=== PATIENT | female | born 1995 | race Caucasian/White ===

== ENCOUNTER → 2020-09-26 09:35 | Outpatient (CLI) | payer OTHER, SELFPAY ==
[2020-09-28 08:17] LABS: RPR Screen Non Reactive (Non Reactive)
[2020-09-29 15:38] LABS: Hepatitis B Surface Antigen NEGATIVE s/c (NEGATIVE)
[2020-09-29 15:56] LABS: HIV 1 & 2 Ab/Ag 4th Gen Combo NEGATIVE (NEGATIVE); Hep C Virus Ab w/Reflex Quant NEGATIVE s/c (NEGATIVE)
== END ==
PROVIDERS: Family Provider Family Medicine; PCP Family Medicine; Visit Provider Physician Assistant
DX: Z72.51 High risk heterosexual behavior (principal)
CPT/HCPCS: 86592; 86803; 87340; 87389

== ENCOUNTER → 2020-10-09 14:20 | Outpatient (CLI) | payer OTHER, MEDICAID, SELFPAY ==
--- NOTE | 2020-10-09 14:21 | DI.US.S_ITS ---
PROCEDURE: US ABDOMEN LIMITED INDICATIONS: MID BACK LUMP ? LIPOMA/IDENTIFY MASS TECHNIQUE: Real-time focused scanning was performed of the abdomen, with image documentation. COMPARISON: None. FINDINGS: The patient was able to identify the area of current clinical concern and direct the sonographic assessment to that region. There is a identifiable 0.9 x 1.5 x 4.4 cm structure in the subcutaneous fat, isoechoic to adjacent fat, consistent with lipoma. IMPRESSION: Presumed lipoma produces the longstanding palpable area of clinical concern mid to upper back area. Continued clinical follow-up with attention to this area is recommended and if unusual symptoms developed or enlargement develops follow-up by contrast-enhanced MR scanning targeted to the area would be recommended Dictated by: Awais Maldonado M.D. on 10/09/2020 at 16:43 Approved by: Awais Maldonado M.D. on 10/09/2020 at 16:44
== END ==
PROVIDERS: Family Provider Family Medicine; PCP Family Medicine; Referring Provider Physician Assistant; Visit Provider Physician Assistant
DX: R22.2 Localized swelling, mass and lump, trunk (principal)
CPT/HCPCS: 76705

== ENCOUNTER → 2021-05-26 12:45 | Outpatient (CLI) | payer OTHER, MEDICAID, SELFPAY | PROVIDERS: Family Provider Family Medicine; PCP Family Medicine; Visit Provider Physician Assistant | DX: W57.XXXA Bitten or stung by nonvenomous insect and other nonvenomous arthropods, initial encounter (principal) | CPT/HCPCS: 81002; 81025; 87070; 87075; 87077; 87147; 87186; 87205 ==

== ENCOUNTER 2021-10-17 18:22 | Emergency (ER) | payer OTHER, MEDICAID, SELFPAY ==
[2021-10-17 19:02] VITALS: BP 130/72; PULSE 116; RESP 18; TEMP 37; O2SAT 100
[2021-10-17 20:10] LABS: Bacteria Urine Moderate (10-30); Culture Indicated Urine Specimen Cultured; RBC Urine 0-1/HPF (0-5/HPF); WBC Urine 30-100/HPF (0-5/HPF)
--- NOTE | 2021-10-17 21:44 | ED_ITS ---
HPI - General Adult General Chief complaint: Urogenital-Female Stated complaint: kidney pain Time Seen by Provider: 10/17/21 21:33 Source: patient Mode of arrival: Ambulatory Limitations: no limitations History of Present Illness HPI narrative: 26-year-old female here for evaluation of right-sided kidney pain. She thinks she has a urinary tract infection. She has had urinary tract infections in the past. She is having vaginal bleeding but has also recently started her menstrual cycle. No prior history of sexually transmitted infections. She she states there is a possibility that she has a sexually transmitted infection currently. No vomiting. No fevers. Related Data Previous Rx's Medication Instructions Recorded acyclovir 200 mg capsule 200 mg PO QID #40 caps 11/27/20 mupirocin 2 % topical ointment 1 applic topical TID #15 grams 05/26/21 sulfamethoxazole 800 1 tab PO BID 3 days #6 tabs 10/17/21 mg-trimethoprim 160 mg tablet (Bactrim DS) Allergies Allergy/AdvReac Type Severity Reaction Status Date / Time No Known Drug Allergies Allergy Verified 10/17/21 19:10 Review of Systems Review of Systems ROS Unobtainable: All systems reviewed & are unremarkable except as noted in HPI and below Patient History Medical History Encounter for screening for infections with a predominantly sexual mode of transmission 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 Social History Smoking Status: Current some day smoker Smoking Status: Current some day smoker alcohol intake frequency: a few times a month Substance Use Type: marijuana Exam Initial Vital Signs Initial Vital Signs: Vital Signs Temperature 98.6 F 10/17/21 19:02 Pulse Rate 116 H 10/17/21 19:02 Respiratory Rate 18 10/17/21 19:02 Blood Pressure 130/72 10/17/21 19:02 Pulse Oximetry 100 10/17/21 19:02 Oxygen Delivery Method 10/17/21 19:02 HENMT Head: normal to inspection and normocephalic GI Inspection: normal to inspection Back/Spine/Pelvis Back: No CVA tenderness Skin General: no rashes or lesions noted Neuro General: patient alert and patient awake Extrem General: normal to inspection and capillary refill normal Course Orders Ordered: Discontinued Medications Trimethoprim/Sulfamethoxazole (Trimeth/Sulfa 160/800 (Ds) Tablet) 1 tab PO NOW ONE Stop: 10/17/21 22:02 Last Admin: 10/17/21 22:04 Dose: 1 tab Documented By: NR Vital Signs Vital signs: Vital Signs - 8 hr 10/17/21 22:07 Pulse Rate 105 H Respiratory Rate 24 Blood Pressure 129/74 Pulse Oximetry 97 Oxygen Delivery Method Room Air Medical Decision Making Lab Data Labs: Lab Results 10/17/21 10/17/21 Range/Units 19:06 19:06 Urine RBC 0-1/hpf (0-5/HPF) Urine WBC 30-100/hpf H (0-5/HPF) Urine Bacteria Moderate (10-30) H (None) Ur Culture Indicated? Specimen cultured Ur Chlamydia DNA (PCR) Not detected N gonorrhoeae DNA (PCR) Not detected Point of Care Testing Test Results Negative Urine Dip Bedside Urine Glucose Negative Bedside Urine Bilirubin - Negative Bedside Urine Ketone - Negative Urine Specific [place] 1.020 Bedside Urine Occult Blood - Negative Bedside Urine pH 6.0 Bedside Urine Protein + 30 Bedside Urine Urobilinogen - Negative Bedside Urine Nitrite - Negative Bedside Urine Leukocytes + 70 Esterase Point of care testing: Point of Care Testing Test Results Negative Urine Dip Bedside Urine Glucose Negative Bedside Urine Bilirubin - Negative Bedside Urine Ketone - Negative Urine Specific [place] 1.020 Bedside Urine Occult Blood - Negative Bedside Urine pH 6.0 Bedside Urine Protein + 30 Bedside Urine Urobilinogen - Negative Bedside Urine Nitrite - Negative Bedside Urine Leukocytes + 70 Esterase MDM Narrative Medical decision making narrative: Patient does have white blood cells and bacteria in her urine. No fevers. No CVA tenderness. Discomfort is more in the right lower back. Afebrile. Tolerating oral intake. Initially had a discussion about checking for gonorrhea and chlamydia and the patient initially agreed to this however stated that she would rather not wait and be discharged home. Will treat with Bactrim. Was given a dose here in the emergency department and will sent home with a prescription. She was given return precautions. She expressed understanding and agreement. Discharge Plan Departure Patient Disposition: Home Clinical Impression: Urinary tract infection Instructions: DI for Urinary Tract Infection (UTI) Activity Restrictions/Additional Instructions: Be sure to take the antibiotics as directed. They were transmitted to the pharmacy of your choice. Contact your primary provider for follow-up. Return to the emergency department for any new or worsening symptoms. Prescriptions: New sulfamethoxazole-trimethoprim [Bactrim DS] 800-160 mg tablet 1 tab PO BID 3 Days Qty: 6 0RF No Action acyclovir 200 mg capsule 200 mg PO QID Qty: 40 1RF mupirocin 2 % ointment 1 applic topical TID Qty: 15 0RF Rx Instructions: Use for ten days Referrals: Margie Isaac MD [Primary Care Provider] - Visit Report Forms: Patient Portal/API
[2021-10-17] MEDS: TRIMETH/SULFA 160/800 (DS) TABLET 1 TAB PO (22:04)
[2021-10-17 22:07] VITALS: BP 129/74; PULSE 105; RESP 24; O2SAT 97
--- NOTE | 2021-10-17 22:08 | PC.NURSE ---
pt assessed by . pt states she is feeling antsy to get out of here, she has been here too long.
[2021-10-17 23:27] LABS: Urine N gonorrhoeae NOT DETECTED
[2021-10-17 23:40] LABS: Urine Chlamydia NOT DETECTED
== END 2021-10-17 22:17 | disposition home or self-care (01) ==
PROVIDERS: Emergency Provider Emergency Medicine; Family Provider Family Medicine; PCP Family Medicine
DX: N39.0 Urinary tract infection, site not specified (principal)
CPT/HCPCS: 81003; 81015; 81025; 87077; 87086; 87186; 87491; 87591; 99283

== ENCOUNTER 2022-07-26 16:36 | Emergency (ER) | payer OTHER, MEDICAID, SELFPAY ==
[2022-07-26 16:43] VITALS: BP 108/70; PULSE 108; RESP 18; TEMP 37; O2SAT 100; BMI 22.3
[2022-07-26 18:50] VITALS: BP 115/64; PULSE 99; RESP 12; O2SAT 100
--- NOTE | 2022-07-26 19:02 | ED.GENADULT ---
HPI - General Adult General Chief complaint: Abdominal Pain Stated complaint: kideny infection T-1 Time Seen by Provider: 07/26/22 18:03 Source: patient Mode of arrival: Ambulatory History of Present Illness HPI narrative: Patient is a 26-year-old female. Here for evaluation of almost 24 hours of urinary urgency and frequency and burning. She is also having some vaginal discharge. Is also having some generalized body aches. Nausea but no vomiting. She has had a urinary tract infection in the past but was approximately 1 year ago. She does not know what medication she was put on. She is having some right-sided lower back discomfort. Related Data Previous Rx's Medication Instructions Recorded mupirocin 2 % topical ointment 1 applic topical TID #15 grams 05/26/21 acyclovir 200 mg capsule See Rx Instructions .Route 01/18/22 .COMPLEX #40 caps cephalexin 500 mg capsule 500 mg PO BID 7 days #14 caps 07/26/22 Allergies Allergy/AdvReac Type Severity Reaction Status Date / Time No Known Drug Allergies Allergy Verified 10/17/21 19:10 Review of Systems Constitutional Constitutional: Reports system reviewed and no additional complaints, except as documented Gastrointestinal Gastrointestinal: Reports system reviewed and no additional complaints, except as documented Genitourinary Genitourinary: Reports system reviewed and no additional complaints, except as documented Musculoskeletal Musculoskeletal: Reports system reviewed and no additional complaints, except as documented Integumentary/Breasts Skin/Breast: Reports system reviewed and no additional complaints, except as documented Neurologic Neurologic: Reports system reviewed and no additional complaints, except as documented Patient History Medical History Encounter for screening for infections with a predominantly sexual mode of transmission 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 Social History Smoking Status: Current some day smoker Smoking Status: Current some day smoker alcohol intake frequency: a few times a month Substance Use Type: marijuana Exam Initial Vital Signs Initial Vital Signs: Vital Signs Temperature 98.6 F 07/26/22 16:43 Pulse Rate 108 H 07/26/22 16:43 Respiratory Rate 18 07/26/22 16:43 Blood Pressure 108/70 07/26/22 16:43 Pulse Oximetry 100 07/26/22 16:43 Oxygen Delivery Method Room Air 07/26/22 16:43 [facility] Head: normal to inspection and normocephalic Resp Effort & Inspection: normal respiratory effort Cardio Rate: regular rate Back/Spine/Pelvis Back: No CVA tenderness Neuro General: patient alert, patient awake and moves all extremities Course Orders Ordered: ED Orders 07/26/22 18:06 Urine Microscopic Stat 07/26/22 19:03 Urine Culture Stat Discontinued Medications Cephalexin HCl (Cephalexin 250 Mg Capsule) 500 mg PO NOW ONE Stop: 07/26/22 19:04 Last Admin: 07/26/22 19:13 Dose: 500 mg Documented By: ALANNAH Ibuprofen (Ibuprofen 400 Mg Tablet) 800 mg PO NOW ONE Stop: 07/26/22 19:04 Last Admin: 07/26/22 19:13 Dose: 800 mg Documented By: ALANNAH Vital Signs Vital signs: Vital Signs - 8 hr 07/26/22 16:43 07/26/22 18:50 Temperature 98.6 F Pulse Rate 108 H 99 H Respiratory Rate 18 12 Blood Pressure 108/70 115/64 Pulse Oximetry 100 100 Oxygen Delivery Method Room Air Room Air Medical Decision Making Lab Data Lab results reviewed: Yes I reviewed the patient's lab results. Labs: Lab Results 07/26/22 Range/Units 18:06 Urine RBC None seen (0-5/HPF) Urine WBC >100/hpf H (0-5/HPF) Ur Squamous Epith Cells 10-30 /hpf H (0-5/HPF) Urine Bacteria Many (>30) H (None) Ur Culture Indicated? Specimen cultured Point of Care Testing Test Results Negative Urine Dip Bedside Urine Glucose Negative Bedside Urine Bilirubin - Negative Bedside Urine Ketone - Negative Urine Specific [place] 1.015 Bedside Urine Occult Blood + Bedside Urine pH 6.0 Bedside Urine Protein + 30 Bedside Urine Urobilinogen - Negative Bedside Urine Nitrite + Positive Bedside Urine Leukocytes +++ 500 Esterase Point of care testing: Point of Care Testing Test Results Negative Urine Dip Bedside Urine Glucose Negative Bedside Urine Bilirubin - Negative Bedside Urine Ketone - Negative Urine Specific [place] 1.015 Bedside Urine Occult Blood + Bedside Urine pH 6.0 Bedside Urine Protein + 30 Bedside Urine Urobilinogen - Negative Bedside Urine Nitrite + Positive Bedside Urine Leukocytes +++ 500 Esterase MDM Narrative Medical decision making narrative: Patient does have a nitrite positive urine and given the symptoms that she presents with it is consistent with a urinary tract infection. A urine culture was obtained. She was given a dose of antibiotics here in the emergency department on prescription was sent to the pharmacy of her choice. She tolerated this without problems. Given her exam I do have low suspicion for pyelonephritis. She was given strict return precautions and follow-up instructions. She expressed understanding and agreement. Discharge Plan Departure Patient Disposition: Home Clinical Impression: UTI (urinary tract infection) Instructions: DI for Urinary Tract Infection (UTI) Activity Restrictions/Additional Instructions: A prescription for antibiotics was sent to [facility] per your request. There was also a urine culture pending at the time of your discharge and we will contact you if we need to change any antibiotics based on this. I also recommend that you continue to take Tylenol and ibuprofen for any fevers or body aches. Return to the emergency department for new or worsening symptoms Prescriptions: New cephalexin 500 mg capsule 500 mg PO BID 7 Days Qty: 14 0RF No Action acyclovir 200 mg capsule See Rx Instructions .ROUTE .COMPLEX Qty: 40 1RF Dose Instruction: TAKE ONE CAPSULE BY MOUTH FOUR TIMES A DAY Rx Instructions: TAKE ONE CAPSULE BY MOUTH FOUR TIMES A DAY mupirocin 2 % ointment 1 applic topical TID Qty: 15 0RF Rx Instructions: Use for ten days Referrals: Margie Isaac MD [Primary Care Provider] - Stand Alone Forms: Patient Portal/API
[2022-07-26 19:04] LABS: Bacteria Urine Many (>30); Culture Indicated Urine Specimen Cultured; RBC Urine None Seen (0-5/HPF); Squamous Epithelial Cell Urine 10-30 /HPF (0-5/HPF); WBC Urine >100/HPF (0-5/HPF)
[2022-07-26] MEDS: cephALEXin 250 MG CAPSULE 500 MG PO (19:13)
[2022-07-26] MEDS: IBUPROFEN 400 MG TABLET 800 MG PO (19:13)
== END 2022-07-26 19:17 | disposition home or self-care (01) ==
PROVIDERS: Emergency Provider Emergency Medicine; Family Provider Family Medicine; PCP Family Medicine
DX: N39.0 Urinary tract infection, site not specified (principal)
CPT/HCPCS: 81003; 81015; 81025; 87086; 87186; 99283

== ENCOUNTER 2023-03-21 19:47 | Emergency (ER) | payer OTHER, MEDICAID, SELFPAY ==
[2023-03-21 19:55] VITALS: BP 125/78; PULSE 91; RESP 16; TEMP 36.8; O2SAT 98; BMI 22.8
== END 2023-03-21 20:54 | disposition left against medical advice (07) ==
PROVIDERS: Emergency Provider Emergency Medicine; Family Provider Family Medicine; PCP Family Medicine
CPT/HCPCS: 99281

== ENCOUNTER 2023-03-22 01:20 | Emergency (ER) | payer OTHER, MEDICAID, SELFPAY ==
[2023-03-22 01:49] VITALS: BP 120/74; PULSE 78; RESP 18; TEMP 36.8; O2SAT 100; BMI 22.8
--- NOTE | 2023-03-22 01:55 | ED.ANIMALBIT ---
HPI - Animal Bite General Chief Complaint: Animal Bite Stated Complaint: spider bite inner rt thigh Time Seen by Provider: 03/22/23 01:22 History of Present Illness HPI narrative: 27-year-old female presents for evaluation of a spider bite on her right inner thigh for the last week. She states it is getting worse and she is concerned that it needs to be drained. Patient checked in the emergency department earlier today but left prior to being seen by a doctor or SARAH Related Data Previous Rx's Medication Instructions Recorded mupirocin 2 % topical ointment 1 applic topical TID #15 grams 05/26/21 acyclovir 200 mg capsule See Rx Instructions .Route 01/18/22 .COMPLEX #40 caps cephalexin 500 mg capsule 500 mg PO TID #30 caps 02/18/23 doxycycline hyclate 100 mg capsule 100 mg PO BID #14 caps 03/22/23 Allergies Allergy/AdvReac Type Severity Reaction Status Date / Time No Known Drug Allergies Allergy Verified 03/21/23 20:13 Review of Systems Review of Systems Narrative: Negative except as noted above Patient History Medical History 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 Encounter for screening for infections with a predominantly sexual mode of transmission Social History Smoking Status: Current some day smoker Smoking Status: Current some day smoker alcohol intake frequency: a few times a month Substance Use Type: marijuana Exam Initial Vital Signs Initial Vital Signs: Vital Signs Temperature 98.2 F 03/22/23 01:49 Pulse Rate 78 03/22/23 01:49 Respiratory Rate 18 03/22/23 01:49 Blood Pressure 120/74 03/22/23 01:49 Pulse Oximetry 100 03/22/23 01:49 Oxygen Delivery Method Room Air 03/22/23 01:49 Const: Awake, alert, no acute distress, nontoxic appearing MSK: Atraumatic, full range of motion, pulses equal Skin: palm-sized area of erythema over inner R thigh. No central fluctuance Neuro: AO x3, CN II-XII grossly intact, moves all extremities Psych: affect normal, mood normal, not suicidal, not homicidal Course Vital Signs Vital signs: Vital Signs - 8 hr 03/22/23 01:49 Temperature 98.2 F Pulse Rate 78 Respiratory Rate 18 Blood Pressure 120/74 Pulse Oximetry 100 Oxygen Delivery Method Room Air MDM - Animal Bite MDM Narrative Medical decision making narrative: Lesion over inner right thigh. Patient is concerned there may be an abscess underneath because it is getting worse. I do not feel any central fluctuance. Point of care ultrasound placed over the patient's area of concern and there was no fluid collection amenable to drainage. Patient counseled to use warm compresses on the area. Due to the size of the cellulitis and duration we will send antibiotics to the pharmacy. ED return precautions discussed at bedside. Patient expressed understanding of the plan and is in agreement at this time. All questions answered at the time of discharge. Discharge Plan Departure Patient Disposition: Home Clinical Impression: Cellulitis Instructions: DI for Spider Bites Activity Restrictions/Additional Instructions: Apply warm compresses to the area of cellulitis several times per day. Take all antibiotics as prescribed. There is no drainable fluid collection that I see on ultrasound at this time. Prescriptions: New doxycycline hyclate 100 mg capsule 100 mg PO BID Qty: 14 0RF No Action acyclovir 200 mg capsule See Rx Instructions .ROUTE .COMPLEX Qty: 40 1RF Dose Instruction: TAKE ONE CAPSULE BY MOUTH FOUR TIMES A DAY Rx Instructions: TAKE ONE CAPSULE BY MOUTH FOUR TIMES A DAY cephalexin 500 mg capsule 500 mg PO TID Qty: 30 0RF Rx Instructions: Sending again per K Plascencia since patient reports she lost first RX mupirocin 2 % ointment 1 applic topical TID Qty: 15 0RF Rx Instructions: Use for ten days Referrals: Margie Isaac MD [Primary Care Provider] - Stand Alone Forms: Patient Portal/API
== END 2023-03-22 02:07 | disposition home or self-care (01) ==
PROVIDERS: Emergency Provider Emergency Medicine; Family Provider Family Medicine; PCP Family Medicine
DX: L03.115 Cellulitis of right lower limb (principal)
CPT/HCPCS: 99281

== ENCOUNTER 2023-07-06 22:04 | Emergency (ER) | payer OTHER, MEDICAID, SELFPAY ==
[2023-07-06 22:09] VITALS: BP 128/85; PULSE 84; RESP 16; TEMP 36.8; O2SAT 100; BMI 21.2
--- NOTE | 2023-07-07 00:24 | ED_ITS ---
HPI - Skin/Abscess/Foreign Bdy General Chief complaint: Skin/Abscess/Foreign Body Stated complaint: rt index finger injury Time Seen by Provider: 07/06/23 23:31 Source: patient Mode of arrival: Ambulatory Limitations: no limitations History of Present Illness HPI narrative: 27-year-old female presents for evaluation of right index finger swelling. Last week patient reports that a piece of metal punctured the base of her index finger. Yesterday she received a penicillin and tetanus shot yesterday as well as an XR at her primary care doctor on [facility]. XR showed no foreign body. She was also discharged on doxycycline prescription, which she has taken for 1 day. She is concerned because she doesn't feel she is getting better. 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 Encounter for screening for infections with a predominantly sexual mode of transmission Social History Smoking Status: Current some day smoker Smoking Status: Current some day smoker tobacco type: cigarettes alcohol intake frequency: holidays/special occasions only Substance Use Type: marijuana Exam Initial Vital Signs Initial Vital Signs: Vital Signs Temperature 98.3 F 07/06/23 22:09 Pulse Rate 84 07/06/23 22:09 Respiratory Rate 16 07/06/23 22:09 Blood Pressure 128/85 07/06/23 22:09 Pulse Oximetry 100 07/06/23 22:09 Oxygen Delivery Method Room Air 07/06/23 22:09 Const: Awake, alert, no acute distress, nontoxic appearing MSK: Atraumatic, full range of motion, able to fully flex and extend finger Skin: warts on palmar index finger. Small puncture wound base of R index finger. Minimal erythema and swelling compared to other fingers. No excessive warmth, no fluctuance Neuro: AO x3, CN II-XII grossly intact, moves all extremities Course Vital Signs Vital signs: Vital Signs - 8 hr 07/06/23 22:09 Temperature 98.3 F Pulse Rate 84 Respiratory Rate 16 Blood Pressure 128/85 Pulse Oximetry 100 Oxygen Delivery Method Room Air MDM - Skin/Abscess/Foreign Bdy MDM Narrative Medical decision making narrative: Presenting for recheck of wounds. There is minimal swelling of the base of the right index finger compared to other fingers, however no excessive warmth or fluctuance. There is no symmetric swelling, patient was full flexion-extension of her finger. Point of care ultrasound shows no organized fluid collection to suspect underlying abscess. Patient was already on antibiotics and has only been on these drugs for only 1 day. Patient advised it may take up to several days for antibiotics to take effect. She was advised to continue to take the doxycycline prescribed and to follow up as needed with her primary care doctor. Note for work provided. Discharge Plan Departure Patient Disposition: Home Clinical Impression: Finger pain Instructions: DI for Cellulitis -- Adult Activity Restrictions/Additional Instructions: Continue your antibiotics as prescribed. Follow up with your primary care physician. Prescriptions: No Action acyclovir 200 mg capsule See Rx Instructions .ROUTE .COMPLEX Qty: 40 1RF Dose Instruction: TAKE ONE CAPSULE BY MOUTH FOUR TIMES A DAY Rx Instructions: TAKE ONE CAPSULE BY MOUTH FOUR TIMES A DAY doxycycline hyclate 100 mg capsule 100 mg PO BID 10 Days Qty: 20 0RF Rx Instructions: Take with food and water. Avoid dairy and sun exposure. mupirocin 2 % ointment 1 applic topical TID Qty: 22 0RF Rx Instructions: Use for ten days Referrals: Margie Isaac MD [Primary Care Provider] - Stand Alone Forms: Patient Portal/API, Work Release Note
== END 2023-07-07 00:33 | disposition home or self-care (01) ==
PROVIDERS: Emergency Provider Emergency Medicine; Family Provider Family Medicine; PCP Family Medicine
DX: M79.644 Pain in right finger(s) (principal)
CPT/HCPCS: 99281; 99282

== ENCOUNTER → 2023-07-15 14:50 | Outpatient (CLI) | payer OTHER, MEDICAID, SELFPAY ==
--- NOTE | 2023-07-15 14:51 | DI.MRI.S_ITS ---
PROCEDURE: MR THORACIC SPINE WO/W CON INDICATIONS: Further evaluate soft tissue mass TECHNIQUE: Noncontrast sagittal T1 spin echo and T2 fast spin echo, sagittal STIR, axial T1 and T2 fast spin echo through the thoracic spine. After the administration of contrast, axial and sagittal T1 spin echo with fat saturation through the thoracic spine. COMPARISON: None. FINDINGS: Image quality: Excellent Mild straightening of the thoracic spine. Vertebral body height of thoracic spine is well maintained. Marrow signal of the thoracic spine is normal for age. No marrow edema. No marrow replacing lesion. Intervertebral disc height are well maintained. No significant disorder of the thoracic spine. Disc bulge at C6-7, resulting in mild central canal stenosis. Cord signal of the thoracic spine: Unremarkable Central canal stenosis: None. Right neural foraminal stenosis: None. Left neural foraminal stenosis: None. Soft tissue mass: Corresponding to the pain marker, there is a subcutaneous fatty lesion measuring 3.4 x 1.4 by 5.4 cm (axial by craniocaudal dimension), at the level of T8, to T9-T10. likely representing a lipoma. No nodular internal enhancement. Other soft tissue findings: Visualized thoracic aorta is normal. IMPRESSION: 1. 5.4 cm subcutaneous lipoma at the level of T8 to T9-10 can correlating to the pain marker. 2. No significant degenerative changes of the thoracic spine. Dictated by: Rocio Ng M.D. on 07/15/2023 at 17:49 Approved by: Rocio Ng M.D. on 07/15/2023 at 18:01
== END ==
PROVIDERS: Family Provider Family Medicine; PCP Physician Assistant; Referring Provider Physician Assistant; Visit Provider Physician Assistant
DX: D17.1 Benign lipomatous neoplasm of skin and subcutaneous tissue of trunk (principal)
CPT/HCPCS: 72157; A9579

== ENCOUNTER → 2023-10-25 15:57 | Outpatient (CLI) | payer OTHER, MEDICAID, SELFPAY ==
[2023-10-26 22:40] LABS: Urine Chlamydia NOT DETECTED; Urine N gonorrhoeae NOT DETECTED
== END ==
PROVIDERS: Family Provider Family Medicine; PCP Physician Assistant; Visit Provider Physician Assistant Medical
DX: R30.0 Dysuria (principal); N88.8 Other specified noninflammatory disorders of cervix uteri; R10.2 Pelvic and perineal pain
CPT/HCPCS: 81002; 81025; 87086; 87491; 87591; 87798; 87801

== ENCOUNTER → 2023-10-28 14:05 | Day surgery (SDC) | payer OTHER, MEDICAID, SELFPAY ==
[2023-10-26 14:56] VITALS: BMI 22.6
[2023-10-28 14:54] VITALS: BMI 22.6
[2023-10-28 15:00] VITALS: BP 121/81; PULSE 77; RESP 18; TEMP 37; O2SAT 98
--- NOTE | 2023-10-28 15:31 | SUR.PREOP ---
Patient stated that she had 3 bites of ice cream at 1230 and smoked marijuana right before coming in to register for her procedure. SHe does not have a dedicated driver to take her home and wants to stay here for a while until she can drive. All of these items discussed with anesthesia and Dr. Poole and it was decided to cancel the procedure. RN informed the patient and let her know when she calls to reschedule that she cannot eat anything after midnight, not to use marijuana within 24 hours and she has to have a reliable person over 18 to pick her up. Patient verbalized understanding.
== END ==
PROVIDERS: Family Provider Family Medicine; PCP Physician Assistant; Referring Provider Surgery; Visit Provider Surgery
DX: D49.2 Neoplasm of unspecified behavior of bone, soft tissue, and skin (principal); Z53.09 Procedure and treatment not carried out because of other contraindication

== ENCOUNTER 2023-11-28 17:03 | Emergency (ER) | payer OTHER, MEDICAID, SELFPAY ==
[2023-11-28 17:05] VITALS: BP 118/73; PULSE 88; RESP 18; TEMP 36.2; O2SAT 100; BMI 21.2
--- NOTE | 2023-11-28 17:48 | DI.US.S_ITS ---
PROCEDURE: US OB <= 14 WEEKS FETUS INDICATIONS: DATES OUTSIDE/PRIOR DATING DATA: Last menstrual period (LMP): Unknown. LMP-based estimated date of delivery (MENG): Unknown. First dating scan (date and location): 11/28/2023. Estimated date of delivery (MENG) from first dating scan: 07/16/2024. TECHNIQUE: Real-time scanning was performed of the fetus and maternal pelvic organs, with image documentation. Endovaginal scanning was also performed to better visualize the fetus and maternal ovaries. COMPARISON: None. FINDINGS: Embryo: pole is identified with crown-rump length measuring 9 mm, consistent with 7 weeks and 0 days. Subchorionic hemorrhage measuring 1.5 x 0.6 x 1.3 cm. Heart rate: 128 beats per minute Maternal organs: Ovaries within normal limits. Right ovarian corpus luteal cyst. IMPRESSION: 1. Single live intrauterine consistent with 7 weeks and 0 days. 2. Subchorionic hemorrhage measuring up to 1.5 cm. We strive to produce accurate, complete, and clear reports of imaging services. To assist us in improving patient care, this report was composed using standard report templates and voice recognition software. Therefore, it may contain abnormal punctuation, insertions and/or omissions. Occasional wrong-word or sound-alike substitutions may occur. Though we review the report and make efforts to correct it, we do recommend that the report be read carefully in proper context to recognize any text inaccuracies. Dictated by: Richard Truong M.D. on 11/28/2023 at 18:47 Approved by: Richard Truong M.D. on 11/28/2023 at 18:48
[2023-11-28 18:02] LABS: Bacteria Urine Many (>30); Culture Indicated Urine Specimen Cultured; RBC Urine None Seen (0-5/HPF); Squamous Epithelial Cell Urine 0-1 /HPF (0-5/HPF); Urine Volume 10mL (spun); WBC Urine 0-1/HPF (0-5/HPF)
[2023-11-28 18:18] LABS: Add Manual Diff / Slide Review NO; Basophils Absolute Auto 100 /uL (0-100); Basophils Percent Auto 0.8 % (0-2); Eosinophils Absolute Auto 300 /uL (0-450); Eosinophils Percent Auto 2.7 % (2-4); Hematocrit 36.2 % (36-46); Hemoglobin 12.7 g/dL (12.0-16.0); Lymphocytes Absolute Auto 3200 /uL (1100-4500); Lymphocytes Percent Auto 27.1 % (25-40); Mean Corpuscular HGB Conc 35.2 % (30-36); Mean Corpuscular Hemoglobin 31.1 PG (26-34); Mean Corpuscular Volume 88.2 fL (80-100); Monocytes Absolute Auto 1200 /uL (0-900); Monocytes Percent Auto 10.6 % (3-14); Neutrophils Absolute Auto 6800 /uL (1500-7000); Neutrophils Percent Auto 58.8 % (50-75); Platelet Count 295 X10^3/uL (150-400); Red Cell Distribution Width 12.9 % (11.6-14.8); White Blood Cell Count 11.7 X10^3/uL (4.5-11.0)
[2023-11-28 18:26] LABS: Prothrombin Time 11.3 SECONDS (9.4-12.5)
[2023-11-28 18:29] LABS: PTT Partial Thromboplastin Tim 33 SECONDS (25.1-36.5)
--- NOTE | 2023-11-28 18:31 | ED_ITS ---
HPI - Recheck/Abnormal Lab/Rx <Sancho Gaimno PA-C - Last Filed: 11/29/23 14:51> General Chief Complaint: Recheck/Abnormal Lab/Rx Stated Complaint: needs ultrasound Time Seen by Provider: 11/28/23 17:45 Source: patient Mode of arrival: Ambulatory History of Present Illness HPI narrative: 28-year-old female presents to the ED requesting a ultrasound to date her . Patient took a test at home 2 days ago which was positive. Patient is unsure when her last menstrual period was, states that it was a while ago. Patient endorses symptoms of a including sore breasts, veins on breasts, nausea, tiredness. Denies vaginal bleeding or spotting. Denies pelvic cramping. Denies fever, chills. Related Data Previous Rx's Medication Instructions Recorded doxycycline monohydrate 100 mg 100 mg PO BID #14 caps 10/25/23 capsule amoxicillin 875 mg tablet 875 mg PO BID #20 tabs 10/30/23 Allergies Allergy/AdvReac Type Severity Reaction Status Date / Time No Known Drug Allergies Allergy Verified 10/28/23 14:51 Review of Systems <Sancho Gamino PA-C - Last Filed: 11/29/23 14:51> Constitutional Constitutional: Denies chills, Reports fatigue, Denies fever(s), Denies frequent falls, Denies lethargy and Denies weakness Eyes Eyes: Denies change in vision, Denies eye discharge, Denies irritation and Denies loss of vision ENT Ears, Nose, Mouth, and Throat: Denies change in voice, Denies dizziness, Denies neck pain, Denies sore throat and Denies throat swelling Cardiovascular Cardiovascular: Denies chest pain, Denies irregular heart rhythm, Denies lightheadedness, Denies palpitations, Denies dyspnea, Denies dyspnea on exertion and Denies orthopnea Respiratory Respiratory: Denies cough, Denies dyspnea, Denies dyspnea on exertion and Denies wheezing Gastrointestinal Gastrointestinal: Denies abdominal pain, Denies change in bowel habits, Denies diarrhea, Reports nausea and Denies vomiting Genitourinary Genitourinary: Reports amenorrhea Musculoskeletal Musculoskeletal: Denies neck pain and Denies numbness Integumentary/Breasts Skin/Breast: Reports breast swelling, Reports breast pain, Denies pruritus, Denies erythema, Denies rash and Denies wounds Neurologic Neurologic: Denies behavioral changes, Denies confusion, Denies dizziness, Denies frequent falls, Denies loss of vision, Denies numbness and Denies weakness Psychiatric Psychiatric: Denies anxiety, Denies behavioral changes, Denies confusion, Denies depression, Denies homicidal ideation and Denies suicidal ideation Endocrine Endocrine: Reports fatigue, Denies flushing and Denies palpitations Hematologic/Lymphatic Hematologic/Lymphatic: Denies easy bruising Allergic/Immunologic Allergic/Immunologic: Denies urticaria, Denies throat swelling and Denies wheezing Patient History <Sancho Gamino PA-C - Last Filed: 11/29/23 14:51> Medical History 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 lives with her father. household members: family lives independently: Yes occupational status: employed Smoking Status: Current some day smoker alcohol intake: current substance use type: marijuana Smoking Status: Current some day smoker tobacco type: cigarettes alcohol intake frequency: a few times a week Substance Use Type: marijuana Exam <Sancho Gamino PA-C - Last Filed: 11/29/23 14:51> Narrative Exam Narrative: Const General:?cooperative, healthy appearing and comfortable [facility] Head:?normal to inspection Ears:?hearing grossly normal bilaterally Nose:?external nose normal Face and sinus:?normal facial exam and sinuses nontender Mouth:?oral mucosae normal Throat:?posterior oropharynx normal Eyes General:?appearance normal, both eyes and all related structures Neck Neck:?normal visual inspection and no lymphadenopathy noted Resp Effort & Inspection:?normal respiratory effort Auscultation:?clear to auscultation bilaterally Cardio Rate:?regular rate Rhythm:?regular rhythm GI Abdomen is soft, nondistended, nontender to palpation. Neuro General:?patient alert, patient awake and patient oriented x3 Initial Vital Signs Initial Vital Signs: Vital Signs Temperature 97.1 F L 11/28/23 17:05 Pulse Rate 88 11/28/23 17:05 Respiratory Rate 18 11/28/23 17:05 Blood Pressure 118/73 11/28/23 17:05 Pulse Oximetry 100 11/28/23 17:05 Oxygen Delivery Method Room Air 11/28/23 17:05 <Kalina Seals DO - Last Filed: 12/05/23 07:19> Initial Vital Signs Initial Vital Signs: Vital Signs Temperature 97.1 F L 11/28/23 17:05 Pulse Rate 88 11/28/23 17:05 Respiratory Rate 18 11/28/23 17:05 Blood Pressure 118/73 11/28/23 17:05 Pulse Oximetry 100 11/28/23 17:05 Oxygen Delivery Method Room Air 11/28/23 17:05 Course <REJI Cruz Last Filed: 11/29/23 14:51> Orders Ordered: ED Orders 11/28/23 17:10 Urine Culture Stat Urine Microscopic Stat 11/28/23 17:48 US pelvic complete Stat 11/28/23 18:06 Beta HCG, Quant [HCG Quantitative /Beta subunit] Stat CBC Auto Diff [Complete Blood Count AUTO DIFF] Stat CMP [Comprehensive Metabolic Panel] Stat Lipase Stat PT [Prothrombin Time INR] Stat PTT [PTT Partial Thromboplastin Alex] Stat Type and Screen Stat Vital Signs Vital signs: Vital Signs - 8 hr 11/28/23 17:05 Temperature 97.1 F L Pulse Rate 88 Respiratory Rate 18 Blood Pressure 118/73 Pulse Oximetry 100 Oxygen Delivery Method Room Air <Kalina Seals DO - Last Filed: 12/05/23 07:19> Orders Ordered: ED Orders 11/28/23 17:10 Urine Culture Stat Urine Microscopic Stat 11/28/23 17:48 US pelvic complete Stat 11/28/23 18:06 Beta HCG, Quant [HCG Quantitative /Beta subunit] Stat CBC Auto Diff [Complete Blood Count AUTO DIFF] Stat CMP [Comprehensive Metabolic Panel] Stat Lipase Stat PT [Prothrombin Time INR] Stat PTT [PTT Partial Thromboplastin Alex] Stat Type and Screen Stat Vital Signs Vital signs: Vital Signs - 8 hr 11/28/23 17:05 Temperature 97.1 F L Pulse Rate 88 Respiratory Rate 18 Blood Pressure 118/73 Pulse Oximetry 100 Oxygen Delivery Method Room Air MDM - Recheck/Abnormal Lab/Rx <REJI Cruz Last Filed: 11/29/23 14:51> Lab Data 11/28/23 18:06 10/21/24 18:06 Labs: Lab Results 11/28/23 11/28/23 Range/Units 17:10 18:06 WBC 11.7 H (4.5-11.0) X10^3/uL RBC 4.10 (4.0-5.2) X10^6/uL Hgb 12.7 (12.0-16.0) g/dL Hct 36.2 (36-46) % MCV 88.2 (80-100) fL MCH 31.1 (26-34) PG MCHC 35.2 (30-36) % RDW 12.9 (11.6-14.8) % Plt Count 295 (150-400) X10^3/uL Neut % (Auto) 58.8 (50-75) % Lymph % (Auto) 27.1 (25-40) % [place] % (Auto) 10.6 (3-14) % Eos % (Auto) 2.7 (2-4) % Baso % (Auto) 0.8 (0-2) % Neut # (Auto) 6800 (7577-3892) /uL Lymph # (Auto) 3200 (8769-8156) /uL [place] # (Auto) 1200 H (0-900) /uL Eos # (Auto) 300 (0-450) /uL Baso # (Auto) 100 (0-100) /uL PT 11.3 (9.4-12.5) SECONDS INR 1.0 (0.9-1.3) APTT 33 (25.1-36.5) SECONDS Sodium 135 L (137-145) mmol/L Potassium 3.5 (3.4-5.1) mmol/L Chloride 101 (98-107) mmol/L Carbon Dioxide 28 (22-32) mmol/L BUN 10 (7-17) mg/dL Creatinine 0.60 (0.52-1.04) mg/dL Estimated GFR > 60 (>60) mL/min BUN/Creatinine Ratio 16.7 (6-22) Glucose 64 L (70-100) mg/dL Calcium 9.3 (8.4-10.2) mg/dL Total Bilirubin 0.4 (0.2-1.3) mg/dL AST 20 (14-36) IU/L ALT 18 (<35) IU/L Alkaline Phosphatase 67 (38-126) U/L Total Protein 6.8 (6.3-8.2) g/dL Albumin 4.1 (3.5-5.0) g/dL Globulin 2.7 (1.7-4.1) g/dL Albumin/Globulin Ratio 1.5 (1.0-2.8) Lipase 59 (23-300) U/L HCG, Quant 70954 mIU/mL Urine RBC None seen (0-5/HPF) Urine WBC 0-1/hpf (0-5/HPF) Ur Squamous Epith Cells 0-1 /hpf D (0-5/HPF) Urine Bacteria Many (>30) H (None) Ur Culture Indicated? Specimen cultured Vol Urine Centrifuged 10ml (spun) Blood Type O Negative Antibody Screen Negative Point of Care Testing Test Results Positive Urine Dip Bedside Urine Glucose Negative Bedside Urine Bilirubin - Negative Bedside Urine Ketone - Negative Urine Specific [place] 1.020 Bedside Urine Occult Blood - Negative Bedside Urine pH 6.0 Bedside Urine Protein - Negative Bedside Urine Urobilinogen - Negative Bedside Urine Nitrite + Positive Bedside Urine Leukocytes - Negative Esterase MDM Narrative Medical decision making narrative: 28-year-old female presents to the ED requesting a ultrasound to date her . Labs, UA, quantitative hCG, type and screen, pelvic ultrasound were obtained. Labs, UA unremarkable. Quantitative hCG 87392. Ultrasound shows a single live intrauterine consistent with 7 weeks and 0 days. There is a subchorionic hemorrhage measuring up to 1.5 cm. Discussed findings with patient. Recommend follow-up with OBGYN as soon as possible for further evaluation. ED return precautions were discussed with patient. Patient verbalized understanding. Medical records reviewed: Yes <Kalina Seals, - Last Filed: 12/05/23 07:19> Lab Data Labs: Lab Results 11/28/23 11/28/23 Range/Units 17:10 18:06 WBC 11.7 H (4.5-11.0) X10^3/uL RBC 4.10 (4.0-5.2) X10^6/uL Hgb 12.7 (12.0-16.0) g/dL Hct 36.2 (36-46) % MCV 88.2 (80-100) fL MCH 31.1 (26-34) PG MCHC 35.2 (30-36) % RDW 12.9 (11.6-14.8) % Plt Count 295 (150-400) X10^3/uL Neut % (Auto) 58.8 (50-75) % Lymph % (Auto) 27.1 (25-40) % [place] % (Auto) 10.6 (3-14) % Eos % (Auto) 2.7 (2-4) % Baso % (Auto) 0.8 (0-2) % Neut # (Auto) 6800 (7465-0038) /uL Lymph # (Auto) 3200 (9907-3502) /uL [place] # (Auto) 1200 H (0-900) /uL Eos # (Auto) 300 (0-450) /uL Baso # (Auto) 100 (0-100) /uL PT 11.3 (9.4-12.5) SECONDS INR 1.0 (0.9-1.3) APTT 33 (25.1-36.5) SECONDS Sodium 135 L (137-145) mmol/L Potassium 3.5 (3.4-5.1) mmol/L Chloride 101 (98-107) mmol/L Carbon Dioxide 28 (22-32) mmol/L BUN 10 (7-17) mg/dL Creatinine 0.60 (0.52-1.04) mg/dL Estimated GFR > 60 (>60) mL/min BUN/Creatinine Ratio 16.7 (6-22) Glucose 64 L (70-100) mg/dL Calcium 9.3 (8.4-10.2) mg/dL Total Bilirubin 0.4 (0.2-1.3) mg/dL AST 20 (14-36) IU/L ALT 18 (<35) IU/L Alkaline Phosphatase 67 (38-126) U/L Total Protein 6.8 (6.3-8.2) g/dL Albumin 4.1 (3.5-5.0) g/dL Globulin 2.7 (1.7-4.1) g/dL Albumin/Globulin Ratio 1.5 (1.0-2.8) Lipase 59 (23-300) U/L HCG, Quant 13441 mIU/mL Urine RBC None seen (0-5/HPF) Urine WBC 0-1/hpf (0-5/HPF) Ur Squamous Epith Cells 0-1 /hpf D (0-5/HPF) Urine Bacteria Many (>30) H (None) Ur Culture Indicated? Specimen cultured Vol Urine Centrifuged 10ml (spun) Blood Type O Negative Antibody Screen Negative Point of Care Testing Test Results Positive Urine Dip Bedside Urine Glucose Negative Bedside Urine Bilirubin - Negative Bedside Urine Ketone - Negative Urine Specific [place] 1.020 Bedside Urine Occult Blood - Negative Bedside Urine pH 6.0 Bedside Urine Protein - Negative Bedside Urine Urobilinogen - Negative Bedside Urine Nitrite + Positive Bedside Urine Leukocytes - Negative Esterase Discharge Plan Departure Patient Disposition: Home Clinical Impression: Qualifiers: Weeks of gestation: less than 8 weeks Qualified Code(s): Z3A.01 - Less than 8 weeks gestation of Instructions: DI for -- Discomforts and Remedies Activity Restrictions/Additional Instructions: You were evaluated in the ED today for a possible . You did test positive for today. Your ultrasound shows a 7 week live . There is some surrounding subchorionic hemorrhage which might put you at a slightly higher risk for a miscarriage or other complications. Please follow-up with an OBGYN as soon as possible for further evaluation. Return to the ED if you have any abnormal symptoms including persistent vomiting, vaginal bleeding. Prescriptions: No Action amoxicillin 875 mg tablet 875 mg PO BID Qty: 20 0RF doxycycline monohydrate 100 mg capsule 100 mg PO BID Qty: 14 0RF Referrals: Hannah Plascencia PA-C [Primary Care Provider] - Stand Alone Forms: Patient Portal/API ED Sign-out <Kalina Seals DO - Last Filed: 12/05/23 07:19> Cosign ED Attending Sheyla Attestation: I was immediately available in the department for consultation.
[2023-11-28 18:33] LABS: Alanine Aminotransferase 18 IU/L (<35); Albumin 4.1 g/dL (3.5-5.0); Albumin Globulin Ratio 1.5 (1.0-2.8); Alkaline Phosphatase 67 U/L (38-126); Aspartate Aminotransferase 20 IU/L (14-36); BUN Creatinine Ratio 16.7 (6-22); Bilirubin Total 0.4 mg/dL (0.2-1.3); Blood Urea Nitrogen 10 mg/dL (7-17); Calcium 9.3 mg/dL (8.4-10.2); Carbon Dioxide 28 mmol/L (22-32); Chloride 101 mmol/L (98-107); Estimated Glomerular Filt Rate > 60 mL/min (>60); Globulin 2.7 g/dL (1.7-4.1); Glucose 64 mg/dL (70-100); HEMOLYSIS < 15 (0-50); Lipase 59 U/L (23-300); Potassium 3.5 mmol/L (3.4-5.1); Sodium 135 mmol/L (137-145); Total Protein 6.8 g/dL (6.3-8.2)
[2023-11-28 18:44] VITALS: BP 132/71; PULSE 108; RESP 16; TEMP 36.9; O2SAT 99
[2023-11-28 19:15] LABS: HCG Quantitative /Beta subunit 74978 mIU/mL
== END 2023-11-28 19:01 | disposition home or self-care (01) ==
PROVIDERS: Emergency Medicine; Emergency Provider Student in an Organized Health Care Education/Training Program; Family Provider Family Medicine; PCP Physician Assistant
DX: Z34.91 Encounter for supervision of normal pregnancy, unspecified, first trimester (principal); Z3A.01 Less than 8 weeks gestation of pregnancy
CPT/HCPCS: 36415; 76801; 76817; 80053; 81003; 81015; 81025; 83690; 84702; 85025; 85610; 85730; 86850; 86900; 86901; 87077; 87086; 87186; 99282; 99283

== ENCOUNTER 2024-04-30 23:06 | Emergency (ER) | payer OTHER, SELFPAY ==
[2024-04-30 23:15] VITALS: BP 122/69; PULSE 113; RESP 17; TEMP 36.8; O2SAT 100; BMI 22.8
--- NOTE | 2024-05-01 00:43 | ED.EAR ---
HPI - Ear Problem General Chief complaint: Ear Stated complaint: Right ear itches, can't hear Time Seen by Provider: 05/01/24 00:42 Source: patient, RN notes reviewed and old records reviewed Mode of arrival: Ambulatory Limitations: no limitations History of Present Illness HPI Narrative: 28-year-old female history of tobacco and substance abuse presents with complaint of right ear itching and decreased hearing as well as lots of nasal congestion. Patient states no pain ear. She states no fevers. She has had nasal congestion. She was little bit of mild cough. No chest pain no shortness of breath. No nausea or vomiting. No other GI or urinary symptoms. She has not had any drainage from the ears. She has not had any swelling or redness of the ears. Patient states no daily prescription medications. Denies any major surgeries. No known drug allergies. Does use tobacco daily, occasional alcohol she states sometimes a lot. She was marijuana. States she does sometimes use cocaine she states she smokes it but does not snort it denies other recreational drugs. Last use was 2 days ago. Discussed with the patient if she has not any interested in talking with social worker clinical or resources she states she does not. 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 lives with her father. household members: family lives independently: Yes occupational status: employed Smoking Status: Current every day smoker alcohol intake: current substance use type: marijuana Smoking Status: Current every day smoker tobacco type: cigarettes alcohol intake frequency: a few times a week Exam Narrative Exam Narrative: GEN: well nourished, well appearing female, alert and oriented x [default value], patient appears to be in mild distress. HEENT: Atraumatic, pupils are equal round reactive to light, extraocular movements are intact, nares have some mild rhinorrhea bilaterally, symptoms intact with no signs of ulceration or breakdown of the skin,, TMs are retracted bilaterally, fluid behind the TM but no erythema, no bulge. Canals are clear with no cerumen. There is no conjunctival pallor. Throat is clear without any exudates, erythema, tonsillar enlargement or uvular deviation HEART: Regular rate and rhythm without murmur, clicks, rubs. LUNGS:Lungs clear to auscultation, no wheezes, rales, crackles, chest moves symmetrically ABD:bowel sounds normal, soft, non-tender, no guarding, rebound, rigidity, no masses noted, no hepatosplenomegaly MSCL: Non-tender, no muscle atrophy, muscles strength 5/5 upper and lower extremities, full range of motion, normal gait NEURO:CN 2-12 intact, sensation normal Initial Vital Signs Initial Vital Signs: Vital Signs Temperature 98.3 F 04/30/24 23:15 Pulse Rate 113 H 04/30/24 23:15 Respiratory Rate 17 04/30/24 23:15 Blood Pressure 122/69 04/30/24 23:15 Pulse Oximetry 100 04/30/24 23:15 Oxygen Delivery Method Room Air 04/30/24 23:15 Course Vital Signs Vital signs: Vital Signs - 8 hr 04/30/24 23:15 Temperature 98.3 F Pulse Rate 113 H Respiratory Rate 17 Blood Pressure 122/69 Pulse Oximetry 100 Oxygen Delivery Method Room Air Medical Decision Making [facility] Narrative Medical decision making narrative: 28-year-old female with recent right upper respiratory infection with some itchiness of her right ear and decreased hearing she describes has been muffled but hearing is present. No cerumen on exam she does not appear to have an upper respiratory infection TMs are retracted in a suspect she is some eustachian tube dysfunction causing fluid and changed to her hearing. Discussed can do [id number] antihistamines, Sudafed if needed we will give prescription for Flonase to see if this improves her symptoms. She notes little nasal irritation, states she does use cocaine but she does not snort it. She was going to lot of rhinorrhea but no other major changes on exam. Discharge Plan Departure Patient Disposition: Home Clinical Impression: Acute dysfunction of right eustachian tube, Upper respiratory infection Instructions: DI for Eustachian Tube Dysfunction-Adult Activity Restrictions/Additional Instructions: Follow up as needed. You appear to have a viral infection likely causing some Eustachian tube dysfunction and fluid behind her ear decreasing your hearing. As your respiratory infection improves your hearing should improve. You can take [id number] antihistamines such as Benadryl or loratadine daily to help with symptoms. You can try Sudafed [id number]. Can also use Flonase 2 sprays bilaterally to your nose daily. Prescription sent to [facility] Please return for fevers, new pain, rapidly worsening symptoms or other new or concerning changes. Prescriptions: New fluticasone propionate [Flonase Allergy Relief] 50 mcg/actuation spray,suspension 1 spray intranasal BID Qty: 16 0RF Rx Instructions: administer into each nostril Referrals: Hannah Plascencia PA-C [Primary Care Provider] - Stand Alone Forms: Patient Portal/API/Survey
== END 2024-05-01 01:13 | disposition home or self-care (01) ==
PROVIDERS: Emergency Provider Emergency Medicine; Family Provider Family Medicine; PCP Physician Assistant
DX: J06.9 Acute upper respiratory infection, unspecified (principal); H69.81 Other specified disorders of Eustachian tube, right ear; F17.210 Nicotine dependence, cigarettes, uncomplicated
CPT/HCPCS: 99281

== ENCOUNTER → 2024-10-17 12:39 | Outpatient (CLI) | payer OTHER, SELFPAY | PROVIDERS: Family Provider Family Medicine; PCP Physician Assistant; Visit Provider Nurse Practitioner Adult Health | DX: N89.8 Other specified noninflammatory disorders of vagina (principal); Z11.3 Encounter for screening for infections with a predominantly sexual mode of transmission | CPT/HCPCS: 87491; 87529; 87591; 87661; 87798; 87801 ==

== ENCOUNTER 2025-01-03 13:49 | Emergency (ER) | payer OTHER, SELFPAY ==
[2025-01-03 14:08] VITALS: BP 130/87; PULSE 90; RESP 18; TEMP 36.4; O2SAT 100; BMI 23.0
--- NOTE | 2025-01-03 14:20 | DI.US.S_ITS ---
PROCEDURE: US PERIPH VENOUS UP EXTREM RT INDICATIONS: inflamed injection site and concern for DVT TECHNIQUE: Real-time imaging, as well as color and pulse Doppler interrogation, was performed of the upper extremity deep veins from the inferior neck to the antecubital fossa. COMPARISON: None. FINDINGS: The internal jugular vein, visualized portions of the subclavian vein, axillary, and brachial veins are free of intraluminal thrombus. Where physically possible, the veins are normally compressible. Color and pulse Doppler demonstrate normal intraluminal flow, with expected phasicity and pulsatility. Additional scanning of the cephalic and basilic veins of the superficial system demonstrates normal compressibility, without thrombus. Heterogeneous hypoattenuating focus within the left antecubital fossa, is located at the dermal subcutaneous fat junction. This measures approximately a 7 x 5 x 7 mm. No increased hyperemia on color Doppler. IMPRESSION: No findings of upper extremity deep venous thrombosis can be seen. Hypoechoic focus within the subcutaneous tissues of the right antecubital fossa measures up to 7 mm and may represent early possible phlegmon without corresponding increased hyperemia on color Doppler. Correlate for peripheral IV or veno puncture in the site. Dictated by: Mark Mendoza M.D. on 01/03/2025 at 15:51 Approved by: Mark Mendoza M.D. on 01/03/2025 at 15:53
[2025-01-03 14:44] LABS: Add Manual Diff / Slide Review NO; Hematocrit 40.4 % (36-46); Hemoglobin 14.0 g/dL (12.0-16.0); Lymphocytes Absolute Auto 2400 /uL (1100-4500); Mean Corpuscular HGB Conc 34.7 % (30-36); Mean Corpuscular Hemoglobin 30.7 PG (26-34); Mean Corpuscular Volume 88.6 fL (80-100); Platelet Count 292 X10^3/uL (150-400)
[2025-01-03 14:55] LABS: Alanine Aminotransferase 18 IU/L (<35); Albumin 4.6 g/dL (3.5-5.0); Albumin Globulin Ratio 1.4 (1.0-2.8); Alkaline Phosphatase 70 U/L (38-126); Blood Urea Nitrogen 21 mg/dL (7-17); Calcium 8.8 mg/dL (8.4-10.2); Carbon Dioxide 28 mmol/L (22-32); Chloride 104 mmol/L (98-107); Estimated Glomerular Filt Rate > 60 mL/min (>60); Globulin 3.2 g/dL (1.7-4.1); Glucose 75 mg/dL (70-99); HEMOLYSIS < 15 (0-50); Potassium 3.9 mmol/L (3.4-5.1); Sodium 141 mmol/L (137-145); Total Protein 7.8 g/dL (6.3-8.2)
[2025-01-03] MEDS: TET,DIPH,PERTUSS(ACELL),VAC/PF 0.5 ML SYRINGE IM (15:18)
--- NOTE | 2025-01-03 15:26 | PC.NURSE ---
pt sitting in [facility]. Watching video on phone. Denies needing anything at this time
--- NOTE | 2025-01-03 15:54 | ED.SKABFB ---
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 lives with her father. household members: family lives independently: Yes occupational status: employed Smoking Status: Current every day smoker alcohol intake: current substance use type: marijuana Smoking Status: Current every day smoker tobacco type: cigarettes and vaping alcohol intake frequency: a few times a week Exam Initial Vital Signs Initial Vital Signs: Vital Signs Temperature 97.6 F 01/03/25 14:08 Pulse Rate 90 01/03/25 14:08 Respiratory Rate 18 01/03/25 14:08 Blood Pressure 130/87 01/03/25 14:08 Pulse Oximetry 100 01/03/25 14:08 Oxygen Delivery Method Room Air 01/03/25 14:08 Course Orders Ordered: ED Orders 01/03/25 14:20 US periph venous up extrem rt Stat 01/03/25 14:36 CBC Auto Diff [Complete Blood Count AUTO DIFF] Stat CMP [Comprehensive Metabolic Panel] Stat Discontinued Medications Cephalexin HCl (Cephalexin 250 Mg Capsule) 500 mg PO NOW ONE Stop: 01/03/25 16:45 Diphtheria/Tetanus/Acell Pertussis (Tet,Diph,Pertuss(Acell),Vac/Pf 0.5 Ml Syringe) 0.5 ml IM .ONCE ONE Stop: 01/03/25 14:50 Last Admin: 01/03/25 15:18 Dose: 0.5 ml Documented By: SGF Sodium Chloride (Normal Saline 0.9%) 1,000 mls @ 1,000 mls/hr IV BOLUS ONE Stop: 01/03/25 16:21 Last Admin: 01/03/25 15:25 Dose: Not Given Documented By: SGF Consultations Consultation #1: [id number] Patient re-evaluated. Discussed lab results and imaging with her. We will send home with a course of antibiotics and recommendation to follow up PCP for wound check. Vital Signs Vital signs: Vital Signs - 8 hr 01/03/25 14:08 Temperature 97.6 F Pulse Rate 90 Respiratory Rate 18 Blood Pressure 130/87 Pulse Oximetry 100 Oxygen Delivery Method Room Air MDM - Skin/Abscess/Foreign Bdy Lab Data 01/03/25 14:36 01/03/25 14:36 Labs: Lab Results 01/03/25 Range/Units 14:36 WBC 7.7 (4.5-11.0) X10^3/uL RBC 4.56 (4.0-5.2) X10^6/uL Hgb 14.0 (12.0-16.0) g/dL Hct 40.4 (36-46) % MCV 88.6 (80-100) fL MCH 30.7 (26-34) PG MCHC 34.7 (30-36) % RDW 12.6 (11.6-14.8) % Plt Count 292 (150-400) X10^3/uL Neut % (Auto) 56.8 (50-75) % Lymph % (Auto) 31.9 (25-40) % [place] % (Auto) 8.0 (3-14) % Eos % (Auto) 2.8 (2-4) % Baso % (Auto) 0.5 (0-2) % Neut # (Auto) 4400 (9025-4849) /uL Lymph # (Auto) 2400 (4554-2816) /uL [place] # (Auto) 600 (0-900) /uL Eos # (Auto) 200 (0-450) /uL Baso # (Auto) 0 (0-100) /uL Sodium 141 (137-145) mmol/L Potassium 3.9 (3.4-5.1) mmol/L Chloride 104 (98-107) mmol/L Carbon Dioxide 28 (22-32) mmol/L BUN 21 H (7-17) mg/dL Creatinine 0.94 (0.52-1.04) mg/dL Estimated GFR > 60 (>60) mL/min BUN/Creatinine Ratio 22.3 H (6-22) Glucose 75 (70-99) mg/dL Calcium 8.8 (8.4-10.2) mg/dL Total Bilirubin 0.3 (0.2-1.3) mg/dL AST 21 (14-36) IU/L ALT 18 (<35) IU/L Alkaline Phosphatase 70 (38-126) U/L Total Protein 7.8 (6.3-8.2) g/dL Albumin 4.6 (3.5-5.0) g/dL Globulin 3.2 (1.7-4.1) g/dL Albumin/Globulin Ratio 1.4 (1.0-2.8) Imaging Data US - abdomen: Radiologist's Impression: IMPRESSION: No findings of upper extremity deep venous thrombosis can be seen. Hypoechoic focus within the subcutaneous tissues of the right antecubital fossa measures up to 7 mm and may represent early possible phlegmon without corresponding increased hyperemia on color Doppler. Correlate for peripheral IV or veno puncture in the site. Discharge Plan Departure Referrals: Hannah Plascencia PA-C [Primary Care Provider, Medical]
[2025-01-03 17:09] VITALS: BP 123/74; PULSE 84; RESP 16; TEMP 36.9; O2SAT 100
== END 2025-01-03 17:10 | disposition home or self-care (01) ==
PROVIDERS: Emergency Provider Student in an Organized Health Care Education/Training Program; PCP Physician Assistant
DX: L98.9 Disorder of the skin and subcutaneous tissue, unspecified (principal); F15.90 Other stimulant use, unspecified, uncomplicated; Z23 Encounter for immunization
CPT/HCPCS: 36415; 80053; 85025; 90471; 93971; 99284; 90715